=== PATIENT | female | born 1975 | race Caucasian/White ===

== ENCOUNTER → 2020-05-10 14:01 | Outpatient (BNVA) | payer SELFPAY | PROVIDERS: PCP Internal Medicine; Visit Provider Urology | DX: Z76.89 Persons encountering health services in other specified circumstances (principal) ==

== ENCOUNTER 2023-07-01 15:26 | Outpatient (AMB) | payer BC, SELFPAY ==
--- NOTE | 2023-07-01 15:51 | A.OFFVIS_ITS ---
Intake Intake Visit Reasons: recurrent UTI's Intake Note: New patient presents today to establish treatment for recurrent UTI's Meds- None Allergies to Antibiotic- No Known Allergies Blood Thinner- None Hardware Trainer Required: No Accompanied by: Self / Same As Patient Allergies Sulfa (Sulfonamide Antibiotics) Allergy (Mild, Verified 07/01/23 15:53) mouth swelling Medication List - Last Reconciled 07/01/23 by David Guevara MD metoprolol succinate ER mg PO nitrofurantoin macrocrystal 50 mg PO DAILY PRN valacyclovir 500 mg PO BID HPI HPI Comments History of Present Illness Details Zonia LOOMIS is a very pleasant female. They are a patient of Dr Solis. She is seen for the following urologic conditions - nephrolithiasis - postcoital UTI Yearly evaluation Had run out of medications and found she had a postcoital UTI Prophylaxis is continuing to work for her 12 month follow-up Urinary Tract Infection: Nephrolithiasis They present for followup evaluation for, recurrent UTI's - has been doing well with using Macrobid as needed post coital - also discussed ultrasound - stones appear to have reduced in size. Will add vitamin B6 to see if we can speed this along The frequency of recurrences has been 3, over, 6, months - early 2016. Gynecologic history: , 3, Para, 3, Vaginal delivery. Therapy has included symptomatic use of antibiotics 11/10 , suppressive antibiotic regimen, nitrofurantoin 04/12 , prophylactic antibiotic use post coital. Recent testing included 12/11 , an ultrasound 9mm left kidney 04/12 9mm left renal stone 03/14 KUB cluster left renal 03/15 , an ultrasound - 10 mm and 8 mm stone on left side. - 04/15 ultrasound 4 mm x2 on left side Therapeutic plan will include imaging, use of abx after intercourse. [facility] Medical History Tachycardia Surgical History History of mammogram Family History Father Stroke Prostate cancer Mother Hypertension Paternal Grandfather Diabetes Brother No problems noted. Sister No problems noted. Son No problems noted. Daughter No problems noted. Social History Housing: House Alcohol intake: current Alcohol intake frequency: a few times a month Alcohol type: wine and hard liquor Patient Tobacco Use Status: Former Tobacco user Tobacco use type: Cigarette e-Cigarette/Vaping Use: Never Used Second Hand Smoke Exposure: No service: No Current occupational status: employed Current occupational exposures/hazards: No Review of Systems Const Denies chills and Denies fever(s) Card Reports no additional complaints and Denies syncope Resp Denies cough GI Denies abdominal pain and Denies heartburn Reports as per HPI and Denies change in libido Neuro Denies syncope Psych Denies change in libido Endo Denies change in libido Physical Exam Const General: cooperative, healthy appearing, comfortable and no acute distress Orientation/consciousness: patient oriented x3 HEENT Face and sinus: Yes normal facial exam Mouth: moist mucous membranes Neck Neck: Yes normal visual inspection, Yes full ROM and Yes trachea midline Chest Chest palpation & inspection: normal inspection of the chest Resp Effort & Inspection: normal respiratory effort, able to speak in complete sentences and no respiratory distress GI Inspection: Yes normal to inspection Back/Spine/Pelvis Cervical Spine: normal cervical lordosis Thoracic/Lumbar Spine: thoracic and lumbar spine normal to inspection Skin General skin exam: no rashes or lesions noted Neuro General: patient oriented x3, gait normal, tone normal and moves all extremities Extrem General: Yes normal to inspection and Yes capillary refill normal Results AMB Urinalysis, Automated UA Leukoctes 70 Gloria/uL Last Edit by Carla Ashford CMA on 07/01/23 16:00 UA Nitrite Negative Last Edit by Carla Ashford CMA on 07/01/23 16: 00 UA Urobilinogen 0.2 mg/dL Last Edit by Carla Ashford CMA on 4 16:00 UA Protein 0 mg/dL Last Edit by Carla Ashford CMA on 07/01/23 16:00 UA pH 6.5 Last Edit by Carla Ashford, [facility] on 07/01/23 16:00 UA Blood 0 Sohail/uL Last Edit by Carla Ashford, [facility] on 07/01/23 16:00 UA Specific [place] 1.015 Last Edit by Carla Ashford, [facility] on 16:00 UA Ketone Negative Last Edit by Carla Ashford, [facility] on 07/01/23 16:0 0 UA Bilirubin 0 mg/dL Last Edit by Carla Ashford, [facility] on 07/01/23 16: 00 UA Glucose 0 mg/dL Last Edit by Carla Ashford [facility] on 07/01/23 16:00 Results Reviewed Results Reviewed: Laboratory Last Values Urine pH (Auto) 6.5 07/01/23 15:58 Specific [place] (Auto) 1.015 07/01/23 15:58 Urine Protein (Auto) 0 mg/dL 07/01/23 15:58 Glucose (UA)(Auto) 0 mg/dL 07/01/23 15:58 Urine Ketones (Auto) Negative 07/01/23 15:58 Urine Blood (Auto) 0 Sohail/uL 07/01/23 15:58 Urine Nitrite (Auto) Negative 07/01/23 15:58 Urine Bilirubin (Auto) 0 mg/dL 07/01/23 15:58 Urine Urobilinogen (Auto) 0.2 mg/dL 07/01/23 15:58 Leukocyte Esterase (Auto) 70 Gloria/uL 07/01/23 15:58 Assessment & Plan Assessment & Plan (1) Recurrent UTI: Code(s): N39.0 - Urinary tract infection, site not specified (2) Nephrolithiasis: Code(s): N20.0 - Calculus of kidney Plan Yearly follow-up Orders: Orders AMB Urinalysis Automated 07/01/23 R33.9 - Retention of urine, unspecified US renal BI 12 Months N39.0 - Urinary tract infection, site not specified Medications: Changed From nitrofurantoin macrocrystal 50 mg PO DAILY PRN N39.0 - Urinary tract infection, site not specified To nitrofurantoin macrocrystal 50 mg PO DAILY PRN 90 caps 1RF sexual activity 90 days N39.0 - Urinary tract infection, site not specified Patient Instructions: Imaging studies, laboratory and physical exam results were discussed and reviewed in detail. No major barriers to patient understanding were identified. An opportunity to ask questions regarding the treatment plan was provided. All questions were answered. The patient expressed understanding and agreement with the above treatment plan. The patient is aware they should contact our office by phone for worsening of their current condition or the appearance of new urologic symptoms. Compliance is encouraged with any medications and followup testing that is ordered. It is a privilege to participate in the urologic care of your patient. If you have any questions or concerns regarding treatment for the above conditions, or other urologic issues, please do not hesitate to contact me. The office telephone contact is [phone]. This note is constructed using voice recognition software. While every effort has been made to ensure accuracy electronic gluer errors may have been included. Yours sincerely, Dr David Guevara MD, [facility] - Urology Providers of Expert, Compassionate Care for the Genitourinary System Coding Level of Care Code Est Pt Level 4 (99760) Diagnoses Recurrent UTI N39.0 Nephrolithiasis N20.0
== END 2023-07-01 16:19 | disposition home or self-care (01) ==
PROVIDERS: PCP Internal Medicine; Visit Provider Urology
DX: N39.0 Urinary tract infection, site not specified (principal); N20.0 Calculus of kidney
CPT/HCPCS: 99213

== ENCOUNTER → 2023-07-01 15:26 | Outpatient (BNVA) | payer BC, SELFPAY | PROVIDERS: PCP Internal Medicine; Visit Provider Urology | DX: N39.0 Urinary tract infection, site not specified (principal); N20.0 Calculus of kidney | CPT/HCPCS: 81003 ==

== ENCOUNTER 2024-06-20 11:26 | Outpatient (REF) | payer BC, SELFPAY ==
--- NOTE | ~2024-06-20 | US_ITS ---
EXAMINATION: US KIDNEY BILATERAL HISTORY: N39.0 - Urinary tract infection, site not specified TECHNIQUE: Real-time grayscale ultrasound imaging of the kidneys was performed and images were reviewed. COMPARISON: There are no prior studies for comparison. FINDINGS: Right kidney: The right kidney measures 10.2 x 5.0 x 5.2 cm. Renal parenchymal echotexture and thickness are normal. There are no masses. There is no hydronephrosis or renal calculi. Left Kidney: The left kidney measures 10.0 x 4.1 x 4.5 cm. Renal parenchymal echotexture and thickness are normal. There are no masses. There is a nonobstructing calculus at the upper pole measuring 4 x 2 x 5 mm. There is no hydronephrosis. US/US renal BI IMPRESSION: 4 x 5 x 2 mm left renal calculus. Otherwise unremarkable renal ultrasound. Electronically signed by: Jorge Prado MD 06/21/2024 09:36 AM [facility]
== END 2024-06-20 11:27 | disposition home or self-care (01) ==
LOC: HO.US 11:26
PROVIDERS: PCP Physician Assistant Medical; Visit Provider Urology
DX: N39.0 Urinary tract infection, site not specified (principal)
CPT/HCPCS: 76775

== ENCOUNTER → 2024-06-20 11:28 | Outpatient (BNV) | payer BC, SELFPAY | PROVIDERS: PCP Physician Assistant Medical; Visit Provider Radiology Diagnostic Radiology | DX: N20.0 Calculus of kidney (principal); N39.0 Urinary tract infection, site not specified | CPT/HCPCS: 76775 ==

== ENCOUNTER 2024-07-22 14:10 | Outpatient (AMB) | payer BC, SELFPAY ==
--- NOTE | 2024-07-22 14:17 | MHC.OFFVIS ---
Intake Visit Reasons: 1y/US Intake Note: Pt presents to the office today for a 1 year follow up/US. Allergies Sulfa (Sulfonamide Antibiotics) Allergy (Mild, Verified 07/22/24 14:17) mouth swelling HPI Comments Details: Zonia LOOMIS is a very pleasant female. They are a patient of Dr Solis. She is seen for the following urologic conditions - nephrolithiasis - postcoital UTI Yearly evaluation Continues postcoital UTI prophylaxis Refill provided Recent ultrasound so small stone left side No symptoms 12 month follow-up Urinary Tract Infection: Nephrolithiasis They present for followup evaluation for, recurrent UTI's - has been doing well with using Macrobid as needed post coital - also discussed ultrasound - stones appear to have reduced in size. Will add vitamin B6 to see if we can speed this along The frequency of recurrences has been 3, over, 6, months - early 2016. Gynecologic history: , 3, Para, 3, Vaginal delivery. Therapy has included symptomatic use of antibiotics 11/10 , suppressive antibiotic regimen, nitrofurantoin 04/12 , prophylactic antibiotic use post coital. Recent testing included 12/11 , an ultrasound 9mm left kidney 04/12 9mm left renal stone 03/14 KUB cluster left renal 03/15 , an ultrasound - 10 mm and 8 mm stone on left side. - 04/15 ultrasound 4 mm x2 on left side - 07/19 renal ultrasound 4 mm stone left side Therapeutic plan will include imaging, use of abx after intercourse. [facility] Medical History Tachycardia Surgical History History of mammogram Family History Father Stroke Prostate cancer Mother Hypertension Paternal Grandfather Diabetes Brother No problems noted. Sister No problems noted. Son No problems noted. Daughter No problems noted. Social History Housing: House Alcohol intake: current Alcohol intake frequency: a few times a month Alcohol type: wine and hard liquor Patient Tobacco Use Status: Former Tobacco user Tobacco use type: Cigarette e-Cigarette/Vaping Use: Never Used Second Hand Smoke Exposure: No service: No Current occupational status: employed Current occupational exposures/hazards: No Review of Systems Const Denies chills and Denies fever(s) Card Reports no additional complaints and Denies syncope Resp Denies cough GI Denies abdominal pain and Denies heartburn Reports as per HPI and Denies change in libido Neuro Denies syncope Psych Denies change in libido Endo Denies change in libido Physical Exam Const General: cooperative, healthy appearing, comfortable and no acute distress Orientation/consciousness: patient oriented x3 HEENT Face and sinus: Yes normal facial exam Mouth: moist mucous membranes Neck Neck: Yes normal visual inspection, Yes full ROM and Yes trachea midline Chest Chest palpation & inspection: normal inspection of the chest Resp Effort & Inspection: normal respiratory effort, able to speak in complete sentences and no respiratory distress GI Inspection: Yes normal to inspection Back/Spine/Pelvis Cervical Spine: normal cervical lordosis Thoracic/Lumbar Spine: thoracic and lumbar spine normal to inspection Skin General skin exam: no rashes or lesions noted Neuro General: patient oriented x3, gait normal, tone normal and moves all extremities Extrem General: Yes normal to inspection and Yes capillary refill normal Assessment & Plan Assessment & Plan (1) Nephrolithiasis: Code(s): N20.0 - Calculus of kidney Category: Medical (2) Recurrent UTI: Code(s): N39.0 - Urinary tract infection, site not specified Category: Medical Plan Twelve month follow-up Refill Rx Medications: Refilled nitrofurantoin macrocrystal 50 mg PO DAILY PRN 90 caps 1RF sexual activity 90 days N39.0 - Urinary tract infection, site not specified Patient Instructions: This note is constructed using voice recognition software. While every effort has been made to ensure accuracy outbound call center representative errors may have been included. Imaging studies, laboratory and physical exam results were discussed and reviewed in detail. No major barriers to patient understanding were identified. An opportunity to ask questions regarding the treatment plan was provided. All questions were answered. The patient expressed understanding and agreement with the above treatment plan. The patient is aware they should contact our office by phone for worsening of their current condition or the appearance of new urologic symptoms. Compliance is encouraged with any medications and followup testing that is ordered. It is a privilege to participate in the urologic care of your patient. If you have any questions or concerns regarding treatment for the above conditions, or other urologic issues, please do not hesitate to contact me. The office telephone contact is [phone]. Sincerely, Dr David Guevara MD, [facility] - Urology Compassionate Specialist Care for the Genitourinary System Coding Level of Care Code Est Pt Level 4 (90878) Complex EM visit Add On G2211 Diagnoses Nephrolithiasis N20.0 Recurrent UTI N39.0
== END 2024-07-22 14:36 | disposition home or self-care (01) ==
LOC: HO.HUSH 14:11
PROVIDERS: PCP Internal Medicine; Visit Provider Urology
DX: N20.0 Calculus of kidney (principal); N39.0 Urinary tract infection, site not specified
CPT/HCPCS: 99214